=== PATIENT | male | born 1980 | race African-American/Black ===

== ENCOUNTER 2019-02-21 09:39 | Emergency (ER) | payer SELFPAY ==
[~2019-02-21] VITALS: Ht 185.4 cm; Wt 63.0 kg
[2019-02-21] MEDS ORDERED: IBUPROFEN 600MG TABLET PO ONE (11:00)
[2019-02-21 12:19] VITALS: BP 126/78
== END 2019-02-21 12:20 | disposition home or self-care (01) ==
LOC: ER 09:39
DX: J02.8 Acute pharyngitis due to other specified organisms (principal); B97.89 Other viral agents as the cause of diseases classified elsewhere; F12.10 Cannabis abuse, uncomplicated; Z98.890 Other specified postprocedural states
CPT/HCPCS: 87430; 99283